=== PATIENT | female | born 1975 | race Caucasian/White ===

== ENCOUNTER → 2020-12-13 | Outpatient (CLI) | payer OTHER ==
--- NOTE | 2020-12-13 13:00 | XR ---
EXAMINATION TYPE: XR ankle complete bilateral DATE OF EXAM: 12/13/2020 COMPARISON: NONE HISTORY: Pain TECHNIQUE: 3 views of the bilateral ankles are submitted for evaluation. FINDINGS: There is no evidence for fracture or dislocation. Ankle mortise is intact. Soft tissues are within normal limits. IMPRESSION: 1. No evidence for acute fracture.
--- NOTE | 2020-12-13 13:02 | XR ---
EXAMINATION TYPE: XR lumbosacral spine min 4V DATE OF EXAM: 12/13/2020 CLINICAL HISTORY: pain COMPARISON: NONE TECHNIQUE: Frontal, lateral, and oblique images of the lumbar spine are obtained. FINDINGS: There are 5 lumbar type vertebral bodies identified. The lumbar spine shows satisfactory alignment without evidence of acute fracture or dislocation. Vertebral body heights are within normal limits. Disc spaces are well preserved. The overlying soft tissue appears unremarkable. IMPRESSION: No acute fracture or dislocation is seen in the lumbar spine.ICD 10 NO FRACTURE, INITIAL EVALUATION
--- NOTE | 2020-12-13 13:02 | XR ---
EXAMINATION TYPE: XR pelvis AP view DATE OF EXAM: 12/13/2020 CLINICAL HISTORY: pain TECHNIQUE: Single view the pelvis is submitted. FINDINGS: No evidence for fracture, dislocation or bony lesion. Joint spaces are well-preserved. S I joints appear symmetric. Left-sided stent is noted be place. IMPRESSION: 1. No acute fracture or dislocation seen. ICD 10 NO FRACTURE, INITIAL EVALUATION
--- NOTE | 2020-12-13 13:03 | XR ---
EXAMINATION TYPE: XR hand complete bilateral, XR wrist complete BILATERAL DATE OF EXAM: 12/13/2020 CLINICAL HISTORY: pain TECHNIQUE: Frontal, lateral and oblique images of the bilateral hands and wrists are obtained. COMPARISON: None. FINDINGS: There is no acute fracture/dislocation evident. The joint spaces appear within normal limi ts. The overlying soft tissue appears unremarkable. IMPRESSION: There is no acute fracture or dislocation ICD 10 NO FRACTURE, INITIAL EVALUATION
--- NOTE | 2020-12-13 13:04 | XR ---
EXAMINATION TYPE: XR foot complete bilateral DATE OF EXAM: 12/13/2020 CLINICAL HISTORY: pain TECHNIQUE: Frontal, lateral and oblique images of the bilateral feet are obtained. COMPARISON: None. FINDINGS: There is no acute fracture/dislocation evident. The joint spaces appear within normal tijerina its. The overlying soft tissue appears unremarkable. Plantar and dorsal calcaneal spurs noted bilate rally. IMPRESSION: There is no acute fracture or dislocation. ICD 10 NO FRACTURE, INITIAL EVALUATION
--- NOTE | 2020-12-13 13:04 | XR ---
EXAMINATION TYPE: XR cervical spine comp DATE OF EXAM: 12/13/2020 CLINICAL HISTORY: pain COMPARISON: NONE TECHNIQUE: Frontal, lateral, oblique, swimmers, and open mouth view of the cervical spine are obtaine d. FINDINGS: The cervical spine is visualized in its entirety from C1 thru the top of T1 level. It is s atisfactory in alignment without evidence of acute fracture or dislocation. The pre-vertebral soft t issue appears within normal limits. Disc spaces are well preserved. The C1-C2 articulation is unremar kable on the open mouth view. The oblique images are within normal limits. IMPRESSION: No acute fracture or dislocation is seen in the cervical spine.ICD 10 NO FRACTURE, INITI AL EVALUATION
--- NOTE | 2020-12-13 13:05 | XR ---
EXAMINATION TYPE: XR knee complete bilateral DATE OF EXAM: 12/13/2020 CLINICAL HISTORY: pain TECHNIQUE: Three views of the bilateral knees are obtained. COMPARISON: None. FINDINGS: There is no acute fracture/dislocation. The tri-compartment joint spaces appear within no rmal limits. The overlying soft tissue appears unremarkable. Incidental involuted fibrous cortical d efect distal right femur posteriorly. IMPRESSION: There is no acute fracture or dislocation.ICD 10 NO FRACTURE, INITIAL EVALUATION
== END | disposition home or self-care (01) ==
LOC: RADXRMAIN 11:22
PROVIDERS: ATTEND Internal Medicine Rheumatology
DX: M25.561 Pain in right knee (principal); M25.562 Pain in left knee; M25.531 Pain in right wrist; M25.532 Pain in left wrist; M79.641 Pain in right hand; M79.642 Pain in left hand; M25.571 Pain in right ankle and joints of right foot; M25.572 Pain in left ankle and joints of left foot; M79.671 Pain in right foot; M79.672 Pain in left foot; M54.2 Cervicalgia; M54.5 Low back pain; R10.2 Pelvic and perineal pain
CPT/HCPCS: 72050; 72110; 72170

== ENCOUNTER → 2022-04-10 | Outpatient (CLI) | payer OTHER ==
[2022-04-10 11:17] VITALS: BP 119/86; PULSE 78; RESP 18
--- NOTE | 2022-04-10 15:33 | P.PAINPG ---
PQRS Measure Charge Sheet Comment: HISTORY OF PRESENT ILLNESS: 46 yr old female w at side as a referral from Dr Lacy presents today w severe and chronic neck pain secondary to disc bulges and facet arthropathy without myelopathy for evaluation. Pt states pain level is at 6 /10 in intensity, constant, localized in the lower cervical spine, sharp in character w shooting pain towards L trapezius and L hand cramping. Pain is provoked by hyperextension, rotation or lateral flexion. Pain is alleviated by PT in Dec 2021 which increased pain, heat, ice, medications (Motrin 800mg, Flexeril from her PCP), topicals, repositioning and rest. PMH: RLE DVTs s/p RLE traumatic fracture PSH: Section, Cholecystectomy, R Knee Surgery SH: Daily tobacco use, No ETOH abuse, No illicit drug use. FH: Non contributory All: Morphine Meds: See list REVIEW OF ORGAN SYSTEMS: CONSTITUTIONAL: No fevers or chills. No recent weight loss. NEUROLOGICAL: + numbness and tingling along the distal extremities. No seizure disorders or headaches. MUSCULOSKELETAL: + pain PSYCHIATRIC: Denies current depression or suicidal thoughts. Physical Examinations : Constitutional : Cooperative , not in acute distress . Neurologic : Cranial nerve II to XII intact. No focal neurological deficits. Psychiatric : alert & oriented x 3. Matching mood & appropriate affect. Judgment & insight intact. Musculoskeletal : Cervical Spine Motor strength in the deltoid and biceps: Normal right side. Normal Left side Motor strength biceps and the wrist extensors: Normal right side . Normal left side Motor strength in the triceps muscle: Normal right side. Normal left side Deep tendon reflexes: Normal at the biceps. Normal at Brachioradialis. Normal at triceps Vertebral body tenderness to deep palpation over C6 Cervical facet loading test: positive bilaterally Spurling test: positive bilaterally Neck distraction test: positive bilaterally Nasim sign: positive bilaterally Lumbar spine Motor strength lower extremities ,thigh and legs 5/5 Right side , 5/5 Left side Deep tendon reflexes : Normal Knee Jerk. Normal Ankle Jerk Vertebral body tenderness over Lumbar facet Loading Test: positive Right / positive Left Range of motion of the lumbar spine Flexion 30 degrees, extension 10 degrees Straight Leg Raise test: Left/ Right positive at degree Garrett test: positive right / positive left. Severe tenderness over the Sacroiliac joint on the Right / Left sides Gaenslen test: positive bilaterally Seated flexion test: positive bilate rally. Sacral spine : Severe tenderness over the Sacroiliac joint: right side / left side Range of motion: Flexion of the lumbar spine <60 degrees Range of motion: Extension of the lumbar spine <20 degrees Gaenslen's Test positive Antwan's Test positive Garrett test: positive right side / left side Thigh Thrust Test Sacral Thrust Test Imaging: MRI without contrast of the cervical spine from 10/31/21 reviewed Assessment/ Plan : Cervical Spondylosis Recommendation of DANIEL C6-C7 #1. May need a series, up to 3 within a 6 mo period, for optimal pain relief. Risks, benefits of procedure discussed and patient verbalized understanding. Admits to aspirin or anti- coagulant use or medical history of diabetes. Protocol for discontinuation/ continuation of medications manohar procedure discussed. Obtaining medical clearance for Rober[place]qu[place]lali. All questions answered. I have spent greater than 30 minutes on patient care today. Dr Don was available by phone for the evaluation of this patient. The time was used to review the medical records including relevant urine studies and Prescription history (MAPs), review of the available imaging, evaluation and examination of the patient, coordination of care with the medical staff and if applicable referring physicians, as well as creation of the medical record PQRS Narrative: Smoking Status Current every day smoker Home Medications: Ambulatory Orders ALPRAZolam [Xanax] 0.25 mg PO Q8HR PRN 04/10/22 Apixaban [Eliquis] 5 mg PO BID 04/10/22 Cyclobenzaprine [Flexeril] 10 mg PO HS 04/10/22 DULoxetine HCL [Cymbalta] 30 mg PO DAILY 04/10/22 Ibuprofen 800 mg PO Q8H 04/10/22 Losartan [Cozaar] 50 mg PO DAILY 04/10/22 Omeprazole 20 mg PO Q12HR PRN 04/10/22 Triamterene-Hctz 37.5-25Mg [Dyazide 37.5-25 Capsule] 1 cap PO DAILY 04/10/22 amLODIPine [Norvasc] 10 mg PO DAILY 04/10/22 Controlled Substance Measures - Controlled Substance Measures Is patient prescribed a controlled substance at discharge?: No
== END ==
LOC: PNWHC3 10:56
PROVIDERS: ATTEND Specialist
DX: M47.812 Spondylosis without myelopathy or radiculopathy, cervical region (principal); Z86.718 Personal history of other venous thrombosis and embolism; Z88.5 Allergy status to narcotic agent; F17.200 Nicotine dependence, unspecified, uncomplicated
CPT/HCPCS: 99211

== ENCOUNTER 2023-11-14 07:30 | Day surgery (SDC) | payer OTHER ==
[~2023-11-14 07:30] MED LIST: BUPIVACAINE (PF) 0.25% 30 ML VIAL ONE; DEXAMETHASONE SOD PHOSPHATE 4 MG/ML 1 ML VIAL ONE; LACTATED RINGERS 1,000 ML BAG ONE; LIDOCAINE 1% INJ 10MG/ML (20 ML MDV) ONE; MIDAZOLAM 2 MG/2 ML VIAL ONE; ONDANSETRON 4 MG/2 ML VIAL ONE; PROPOFOL 10 MG/ML 20 ML VIAL IV ONE; ROPIVACAINE 5 MG/ML 30 ML VIAL ONE; SODIUM CHLORIDE 0.9% (PF) VIAL 0 ML ONE; SODIUM CHLORIDE 0.9% 50 ML BAG IV ONE; ceFAZolin 1,000 MG VIAL ONE; fentaNYL (PF) 50 MCG/ML 2 ML AMP ONE
[2023-11-14] MEDS ORDERED: HYDROmorphone 0.5 MG/0.5 ML SYRINGE ONE ×4 (08:37→09:16)
[2023-11-14] MEDS ORDERED: ONDANSETRON 4 MG/2 ML VIAL ONE (08:50)
[2023-11-14] MEDS ORDERED: HYDROcodone/APAP 5-325MG 1 EACH TAB ONE (10:38)
--- NOTE | 2023-11-28 15:51 | OP ---
OPERATIVE REPORT DATE OF SERVICE : 11/14/2023 PREOPERATIVE DIAGNOSIS: Osseous cyst, left cuboid. POSTOPERATIVE DIAGNOSIS: Osseous cyst, left cuboid. PROCEDURE: Excision and curettage with allograft filler, left cuboid. ANESTHESIA: General. HEMOSTASIS: Left ankle tourniquet at 250 mmHg. ESTIMATED BLOOD LOSS: Minimal. MATERIALS: [employer] Pro-Dense. INJECTABLES: 20 cc 0.25% Marcaine preop. SPECIMENS: None. COMPLICATIONS: None. DESCRIPTION OF PROCEDURE: The patient was brought into the operating room and placed on the table in the supine position. Time-out was taken to confirm correct patient identifiers, correct laterality of surgery, and correct procedure. Once all staff in the room were in agreement with a time-out, the patient was induced and placed under general anesthesia. A bump was placed beneath the left hip to internally rotate the left leg. A well- padded tourniquet was placed on the left ankle. 20 cc of 0.25% Marcaine was injected in an ankle block. The left foot was prepped and draped in usual manner. The left foot was exsanguinated and the tourniquet inflated to 250 mmHg. Utilizing fluoroscopy, the cyst within the cuboid was identified and marked over the skin. The incision was placed directly over this area. The incision was deepened down to the subcutaneous tissue careful to identify, avoid, and retract any neurovascular structures and cauterize any bleeding vessels. Dissection was carried down to the deep fascia overlying the extensor digitorum brevis muscle belly. The muscle belly was sharply incised from its lateral attachments and reflected medially to expose the cuboid. Utilizing an osteotome, a window was produced in the dorsal cortex of the cuboid. The window was removed and wrapped in a moistened saline gauze off the surgical field. The area was slightly deepened until the cyst was encountered. The cyst had a mixed fluid and mucoid type tissue makeup. The casillas of the cyst were cortical bone and fairly firm with no evidence of fracture. A curette was used to aggressively debride the casillas of the cyst until all material was removed. [employer] Pro-Dense was mixed on the back table and allowed to come to desired consistency. Then, the cyst was filled with the Pro-Dense fully, which was confirmed under fluoroscopy. Once completed, a cortical window was placed back into the cuboid. The area was then carefully irrigated with antibiotic saline. The deep closure was done with 2-0 Vicryl, subcutaneous closure done with 4-0 Monocryl, and skin closure done with 4-0 Stratafix in a running subcuticular manner. Dermabond was placed across the incision and allowed to dry until tacky. Steri-Strips were placed over the incision. An Arthrex jumpstart was placed over the incision and then dry sterile dressings applied to the left foot. The tourniquet was released and capillary refill returned to all digits on the left foot. The patient was then placed in a well-padded, well-molded plaster posterior mold/sugar-tong splint. The foot and ankle were held in neutral position until the splint was fully dried. Then, anesthesia was reversed and the patient was taken to recovery with vital signs stable. [id number] / IJN: [id number] /
== END 2023-11-14 11:30 ==
LOC: OR 07:30
PROVIDERS: ATTEND Podiatrist
DX: D16.32 Benign neoplasm of short bones of left lower limb